=== PATIENT | male | born 1965 | race Caucasian/White ===

== ENCOUNTER 2020-10-07 18:32 | Emergency (ER) | payer MEDICARE ==
[2020-10-07 19:56] LABS: HEMOGLOBIN 8.1 gm/dl (14.0-17.5); RED BLOOD COUNT 2.99 M/UL (4.20-5.50); WHITE BLOOD COUNT 4.8 K/UL (4.5-11.0)
[2020-10-07] MEDS ORDERED: IMITREX50 MG PO (23:03)
== END 2020-10-07 23:08 | disposition home or self-care (01) ==
LOC: ER1 18:32
PROVIDERS: Emergency Medicine
DX: G43.B0 Ophthalmoplegic migraine, not intractable (principal); I10 Essential (primary) hypertension; F17.210 Nicotine dependence, cigarettes, uncomplicated
CPT/HCPCS: 36415; 70450; 80053; 85025; 85610; 85730; 96374; 96375; 99284; J0780; J1885; J2060